=== PATIENT | male | born 2000 | race Caucasian/White ===

== ENCOUNTER 2019-05-25 22:57 | Emergency (ER) | payer SELFPAY ==
--- NOTE | 2019-05-25 23:19 | EDM.PDOC ---
ED HPI GENERAL MEDICAL PROBLEM - General Chief Complaint: ENT Problem Stated Complaint: PAIN UNDER CROWNS TOOTH PAIN Time Seen by Provider: 05/25/19 23:10 Source of Information: Reports: Patient History Limitations: Reports: No Limitations - History of Present Illness INITIAL COMMENTS - FREE TEXT/NARRATIVE: This is a 19-year-old male. Onset of right sided tooth pain about 2 to 3 days ago. The pain got worse tonight so he comes to the ER for evaluation. He says he cannot get into a dentist until Monday or at least call 1 of them to get an appointment. He does have a On the bottom second molar. But he cannot tell what is really hurting whether is the upper teeth of the lower teeth. He denies any fever or chills he denies any facial swelling he denies any sore throat or ear pain. Right Upper Tooth/Teeth Pain Score (Numeric/FACES): 9 - Related Data Allergies Allergy/AdvReac Type Severity Reaction Status Date / Time No Known Allergies Allergy Verified 05/25/19 23:05 Home Meds: Home Meds . [No Known Home Meds] 10/27/17 [History] Past Medical History - Past Health History Medical/Surgical History: Denies Medical/Surgical History HEENT History: Reports: Impaired Vision Other HEENT History: Wears glasses Social & Family History - Tobacco Use Smoking Status *Q: Current Every Day Smoker Years of Tobacco use: 4 Packs/Tins Daily: 0.5 - Caffeine Use Caffeine Use: Reports: Energy Drinks, Soda - Recreational Drug Use Recreational Drug Use: No ED ROS ENT - Review of Systems Review Of Systems: See Below Constitutional: Reports: No Symptoms HEENT: Reports: Other (Tooth pain). Denies: Ear Pain, Throat Pain Respiratory: Reports: No Symptoms Cardiovascular: Reports: No Symptoms Endocrine: Reports: No Symptoms GI/Abdominal: Reports: No Symptoms : Reports: No Symptoms Musculoskeletal: Reports: No Symptoms Skin: Reports: No Symptoms Neurological: Reports: No Symptoms Psychiatric: Reports: No Symptoms Hematologic/Lymphatic: Reports: No Symptoms ED EXAM, ENT - Physical Exam Exam: See Below Exam Limited By: No Limitations General Appearance: Alert, WD/WN, Mild Distress Eye Exam: Bilateral Eye: Normal Inspection Ears: Normal External Exam, Normal TMs Nose: Normal Inspection Mouth/Throat: Normal Inspection, Normal Gums, Normal Lips, Normal Oropharynx, Other (He has a few chipped teeth in the upper right jaw area, the right lower jaw has a Second molar, there is no drainage no gum swelling or redness) Head: Normocephalic, Other (There is no swelling on that right jaw area soft tissue no significant lymphadenopathy at the angle of the jaw on the right) Neck: Supple Respiratory/Chest: No Respiratory Distress Back: Full Range of Motion Extremities: Normal Inspection, Normal Range of Motion Neurological: Alert, Oriented Psychiatric: Normal Affect, Normal Mood Skin: Warm, Dry Course - Vital Signs Last Recorded V/S: Last Vital Signs Temp 97.8 F 05/25/19 23:05 Pulse 82 05/25/19 23:05 Resp 19 05/25/19 23:05 BP 155/102 H 05/25/19 23:05 Pulse Ox 100 05/25/19 23:05 Departure - Departure Time of Disposition: 23:18 Disposition: Home, Self-Care 01 Condition: Fair Clinical Impression: Pain in tooth, Dental infection - Discharge Information *PRESCRIPTION DRUG MONITORING PROGRAM REVIEWED*: Not Applicable *COPY OF PRESCRIPTION DRUG MONITORING REPORT IN PATIENT ROSMERY: Not Applicable Instructions: Preventive Dental Care, Adult Referrals: PCP,None [Primary Care Provider] - Forms: ED Department Discharge Additional Instructions: Obtain your penicillin VK for the infection and the Ultram at the [employer] machine in the lobby before you go home. Take them as prescribed. Call your dentist on Monday for evaluation of your teeth, return to the ER if needed Sepsis Event Note - Evaluation Sepsis Screening Result: No Definite Risk - Focused Exam Vital Signs: Vital Signs Temp Pulse Resp BP Pulse Ox 05/25/19 23:05 97.8 F 82 19 155/102 H 100 Date Exam was Performed: 05/25/19 Time Exam was Performed: 23:30
== END 2019-05-25 23:33 | disposition home or self-care (01) ==
LOC: JD.ED 22:57
CPT/HCPCS: 99282; 99283

== ENCOUNTER 2022-05-23 19:41 | Emergency (ER) | payer SELFPAY ==
[2022-05-23] MEDS ORDERED: Lidocaine 1% 10 ML MDV INJECT ONE (20:20)
[2022-05-23] MEDS ORDERED: Acetaminophen/HYDROcodone 325-5 MG Tab PO ONE (20:20)
[2022-05-23] MEDS ORDERED: Doxycycline Monohydrate 100 MG Cap PO ONE (20:46)
== END 2022-05-23 22:13 | disposition home or self-care (01) ==
LOC: JD.ED 19:41
DX: N49.2 Inflammatory disorders of scrotum (principal)
CPT/HCPCS: 54700; 99283; A9270; 99282; J3490